=== PATIENT | male | born 1965 | race Caucasian/White ===

== ENCOUNTER → 2025-01-19 | Outpatient (CLI) | payer BC ==
--- NOTE | 2025-01-19 13:22 | NM ---
EXAMINATION TYPE: NM stress cardiolite complete DATE OF EXAM: 01/19/2025 COMPARISON: NONE CLINICAL INDICATION: Male, 59 years old with history of I20.89 angina; history of hypertension. TECHNIQUE: After the intravenous administration of 9.7 mCi Tc 99m Sestamibi - Rest images obtained 5 7 minutes post injection. The patient exercised using a BARBIE protocol and 1 minute prior to peak e xercise was injected with 25.4 mCi Tc 99m Sestamibi - Stress images obtained 25 minutes post injectio n. FINDINGS: Targeted heart rate was achieved during performance of the study. Review of stress and rest SPECT kadi ges demonstrates no distinct perfusion abnormality. Gated analysis shows normal wall motion with an estimated left ventricular ejection fraction of 51 %. IMPRESSION: No scintigraphic evidence for reversible ischemia [facility] Malik Corey, , 01/19/2025 1:20 PM
--- NOTE | 2025-01-19 18:40 | CA ---
Exercise Nuclear Stress Test Report Name: Pan Ann Exam Date: 01/19/2025 09:20 Exam Location: [place] Stress Ht (in): 71 Wt (lb): 235 BSA: 2.26 Ordering Phys: Cheryl Sutton DO Referring Phys: Lilliam Culp PAC Technologist: BRENT Age: 59 Gender: M : 1965 Procedure CPT: Indications: I20.89 ANGINA ICD-10 Codes: Patient History: Chest pain, shortness of breath and hypertension Medications: SEE LIST,,, Meds past 24 hrs: Pretest Chest Pain: STRESS TEST Anthony Protocol Exercise Duration (min:sec): 09:[address] Depressions (mm): Angina Score: [place] Score: Resting HR (bpm): 68 Peak HR (bpm): 139 Resting BP (mmHg): 126 / 79 Peak BP (mmHg): 171 / 71 MPHR: 161 Target HR: 137 % MPHR: 86 METS: 10.3 Total Dose: Peak Dose: Atropine: Double Product: 06270 BP Response: Stress Termination: Reached target heart rate Stress Symptoms: No chest pain or symptoms Stress Summary: ECG ANALYSIS Resting ECG: Stress ECG: CONCLUSIONS Reason: Chest discomfort shortness of breath with history of hypertension Patient exercised on a Anthony protocol for 9 minutes achieving a peak heart rate of 139 beats minute. Normal blood pressure response No ECG evidence for ischemia or arrhythmia 10.3 METS of workload achieved Dr. Omar Huitron MD (Electronically Signed) Final Date: 19 January 2025 18:40
== END | disposition home or self-care (01) ==
LOC: RADNMMAIN 07:46
PROVIDERS: ATTEND Family Medicine
DX: I20.89 Other forms of angina pectoris (principal); I10 Essential (primary) hypertension
CPT/HCPCS: 93017; 78452; A9500